=== PATIENT | male | born 2000 | race Native Hawaiian/Other Pacific Islander ===

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

== ENCOUNTER 2021-05-05 21:00 | Emergency (ER) | payer OTHER ==
[~2021-05-05] VITALS: Ht 185.4 cm; Wt 68.0 kg
[2021-05-05 23:47] VITALS: BP 140/69; TEMP 98.4
== END 2021-05-05 23:47 | disposition home or self-care (01) ==
LOC: ED 21:00
DX: N45.1 Epididymitis (principal)
CPT/HCPCS: 81000; 87490; 87590; 96372; 99283; J0696

== ENCOUNTER 2021-05-15 14:31 | Outpatient (CLI) | payer OTHER | END 2021-05-15 19:15 | disposition home or self-care (01) | LOC: US 14:31 | PROVIDERS: ATTEND Registered Nurse | DX: N50.89 Other specified disorders of the male genital organs (principal) ==

== ENCOUNTER 2021-10-09 15:06 | Emergency (ER) | payer OTHER ==
[~2021-10-09] VITALS: Ht 185.4 cm; Wt 68.0 kg
[2021-10-09 15:17] VITALS: TEMP 98.1
[2021-10-09 18:08] VITALS: BP 126/80
== END 2021-10-09 18:13 | disposition home or self-care (01) ==
LOC: ED 15:06
PROC: 0HQ0XZZ Repair Scalp Skin, External Approach (ICD-10-PCS; principal; 2021-10-09)
DX: S01.01XA Laceration without foreign body of scalp, initial encounter (principal); W01.198A Fall on same level from slipping, tripping and stumbling with subsequent striking against other object, initial encounter; Y92.89 Other specified places as the place of occurrence of the external cause
CPT/HCPCS: 90471; 90715; 99283

== ENCOUNTER 2021-10-19 14:51 | Emergency (ER) | payer OTHER ==
[~2021-10-19] VITALS: Ht 185.4 cm; Wt 68.0 kg
[2021-10-19 15:02] VITALS: BP 131/58; TEMP 97
== END 2021-10-19 16:09 | disposition home or self-care (01) ==
LOC: ED 14:51
DX: Z48.02 Encounter for removal of sutures (principal)

== ENCOUNTER 2022-01-11 03:42 | Emergency (ER) | payer OTHER ==
[~2022-01-11] VITALS: Ht 185.4 cm; Wt 70.8 kg
[2022-01-11 05:10] VITALS: BP 105/67; TEMP 98.1
== END 2022-01-11 05:15 | disposition home or self-care (01) ==
LOC: ED 03:42
PROC: 2W2CX4Z Dressing of Right Lower Arm using Bandage (ICD-10-PCS; principal; 2022-01-11)
PROC: 2W2MX4Z Dressing of Left Lower Extremity using Bandage (ICD-10-PCS; 2022-01-11)
DX: T23.271A Burn of second degree of right wrist, initial encounter (principal); T24.222A Burn of second degree of left knee, initial encounter; T31.20 Burns involving 20-29% of body surface with 0% to 9% third degree burns; X08.8XXA Exposure to other specified smoke, fire and flames, initial encounter; Y92.89 Other specified places as the place of occurrence of the external cause
CPT/HCPCS: 96372; 99282; J1885; J7040

== ENCOUNTER 2022-04-17 11:13 | Emergency (ER) | payer OTHER ==
[~2022-04-17] VITALS: Ht 185.4 cm; Wt 70.8 kg
[2022-04-17 11:20] VITALS: TEMP 98.2
[2022-04-17] MEDS ORDERED: CEPH500C20 PO (12:49)
[2022-04-17 13:00] VITALS: BP 122/72
== END 2022-04-17 13:15 | disposition home or self-care (01) ==
LOC: ED 11:13
DX: S92.511B Displaced fracture of proximal phalanx of right lesser toe(s), initial encounter for open fracture (principal); S90.121A Contusion of right lesser toe(s) without damage to nail, initial encounter; S90.414A Abrasion, right lesser toe(s), initial encounter; W20.8XXA Other cause of strike by thrown, projected or falling object, initial encounter; Y92.89 Other specified places as the place of occurrence of the external cause
CPT/HCPCS: 99283; J0690; J1885